=== PATIENT | female | born 1955 | race Asian ===

== ENCOUNTER 2021-10-15 19:32 | Emergency (ER) | payer OTHER ==
[~2021-10-15] VITALS: Ht 170.2 cm; Wt 72.6 kg
[2021-10-15 20:19] LABS: PLATELET COUNT 283 K/uL (152-353)
[2021-10-15 20:29] LABS: POTASSIUM 3.6 mmol/L (3.6-5.2)
[2021-10-15 21:20] VITALS: TEMP 98.5
[2021-10-15 22:00] VITALS: BP 175/102
[2021-10-16] MEDS ORDERED: NOVOLOG FL100 UNIT/M SC (07:54)
[2021-10-16] MEDS ORDERED: LORA0.5T17 PO (07:56)
[2021-10-16] MEDS ORDERED: CLON0.1T16 PO (07:57)
[2021-10-16] MEDS ORDERED: DOCU100C10 PO (07:58)
[2021-10-16] MEDS ORDERED: PANTOPRAZOLE 40MG TA PO (08:00)
[2021-10-16] MEDS ORDERED: COZAAR100 MG PO (08:00)
[2021-10-16] MEDS ORDERED: FERROUS SULF325 MG PO (08:02)
[2021-10-16] MEDS ORDERED: LANTUS SOL100 UNIT/M SC (08:05)
[2021-10-16] MEDS ORDERED: FURO40TA93 PO (08:07)
[2021-10-16] MEDS ORDERED: PAIN RELIEF EX500 M1 PO (08:09)
== END 2021-10-15 21:30 | disposition other institution (70) ==
LOC: ED 19:32
PROVIDERS: Family Medicine
DX: F03.91 Unspecified dementia, unspecified severity, with behavioral disturbance (principal); Z91.83 Wandering in diseases classified elsewhere; Z11.52 Encounter for screening for COVID-19; Z04.6 Encounter for general psychiatric examination, requested by authority
CPT/HCPCS: 36415; 80053; 82550; 84484; 85027; 87635; 93005; 96360; 96374; 99284; J3490; U0003